=== PATIENT | female | born 1965 | race Caucasian/White ===

== ENCOUNTER 2016-09-11 18:17 | Emergency (ER) | payer OTHER ==
[2016-09-11 19:37] VITALS: BP 113/69
--- NOTE | 2016-09-11 20:07 | UC ---
Hip/Pelvis Pain - HPI Summary HPI Summary: fell onto right hip and buttock 3d ago, landed hard. Didn't hurt too much at first, but yesterday she awoke with severe pain over right lateral hip. Hurts to make any movement, hurts to touch the area. No redness or swelling. Hard to get up out of chair or bed, hurts to walk, even hurts to lie still. She is on NSAID for a flare of left ankle arthritis (?gout). Left ankle is feeling better. 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 - Hx Last Menstrual Period: 08/21/16 ?: No Onset/Duration: Gradual Onset, Lasting Days - 2 Timing: Constant Severity Initially: Mild Severity Currently: Moderate Location: Discrete At: - right hip Character Of Pain: Sharp, Aching, Stiffness Aggravating Factor(s): Movement, Weight Bearing Alleviating Factor(s): Nothing Associated Signs And Symptoms: Positive: Negative - Risk Factors Septic Arthritis Risk Factor: Negative - Allergies/Home Medications Allergies/Adverse Reactions: Allergies Allergy/AdvReac Type Severity Reaction Status Date / Time No Known Allergies Allergy Verified 09/11/16 19:37 Home Medications: Home Medications Calcium Ascorbate [Vitamin C] 500 mg PO DAILY 09/11/16 [History Confirmed ] Indomethacin CAP* [Indocin CAP*] 50 mg PO BID PRN 09/11/16 [History Confirmed ] Lisinopril TAB* [Prinivil TAB*] 20 mg PO DAILY 09/11/16 [History Confirmed 09/11] Multivitamins/Minerals TAB* [Thera M Plus TAB*] 1 tab PO DAILY 09/11/16 [ History Confirmed 09/11/16] amLODIPine TAB* [Norvasc TAB*] 5 mg PO DAILY 09/11/16 [History Confirmed ] PMH/Surg Hx/FS Hx/Imm Hx Endocrine History Of: Denies: Diabetes, Thyroid Disease Cardiovascular History Of: 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 Denies: Hypertension Respiratory History Of: Denies: COPD, Asthma - Surgical History Surgical History: Yes Surgery Procedure, Year, and Place: left shoulder, carpal tunnel, tubal ligation , - Family History Known Family History: Positive: Hypertension - Social History Occupation: Employed Full-time Lives: With Family Alcohol Use: Daily Alcohol Amount: 3-4 Substance Use Type: None Smoking Status (MU): Heavy Every Day Tobacco Smoker Type: Cigarettes Amount Used/How Often: 1/2 pack day Review of Systems Constitutional: Negative Skin: Bruising - right knee Eyes: Negative ENT: Negative Respiratory: Negative Cardiovascular: Negative Gastrointestinal: Negative Genitourinary: Negative Motor: Negative Neurovascular: Negative Musculoskeletal: Arthralgia, Decreased ROM, Myalgia Neurological: Negative Psychological: Negative All Other Systems Reviewed And Are Negative: Yes Physical Exam Triage Information Reviewed: Yes Appearance: Well-Appearing, No Pain Distress, Well-Nourished Vital Signs: Initial Vital Signs Temp 98.6 F 09/11/16 19:22 Pulse 107 09/11/16 19:22 Resp 18 09/11/16 19:22 BP 113/69 09/11/16 19:22 Pulse Ox 96 09/11/16 19:22 Vital Signs Reviewed: Yes Eye Exam: Normal Neck exam: Normal Respiratory Exam: Normal Cardiovascular Exam: Normal Musculoskeletal Exam: Other - very tender to palpation over right hip greater trochanter. No redness, bruising, or swelling. Hurts to flex and extend at hip. Neurological Exam: Normal Psychological Exam: Normal Skin Exam: Normal Diagnostics - Laboratory Diagnostic Studies Completed/Ordered: hip xray: mild DJD Hip Injury Course/Dx - Differential Dx/Diagnosis Differential Diagnosis/HQI/PQRI: Bursitis, Fracture, Strain Provider Diagnoses: hip bursitis Discharge - Discharge Plan Condition: Stable Disposition: HOME Patient Education Materials: Hip Bursitis (ED) Referrals: Jack Fuller MD [Medical Doctor] - Sesar De La Cruz MD [Primary Care Provider] - Additional Instructions: Take your indomethacin three times a day. Put heat on the hip. Try Icy Hot or Kike Silva rubs. Don't sleep on the right hip. Keep the hip moving, but don't do heavy work until it has healed If it is still terribly painful by mid week, call Dr. Fuller. He can do a further evaluation and can advise on other treatment options.
--- NOTE | 2016-09-11 20:32 | RAD ---
Indication: RIGHT hip and lateral aspect leg pain post fall onto RIGHT hip 3 days ago. Comparison: None. Technique: Supine AP pelvis and AP and frog-leg lateral views RIGHT hip. Report: Negative for pelvic fracture or pelvic joint diastases. The RIGHT hip is normally located and without radiographic evidence for fracture. Minimal marginal osteophytosis without significant joint space narrowing. Unremarkable soft tissue contours. IMPRESSION: No radiographic evidence for RIGHT hip fracture.
== END 2016-09-11 20:56 | disposition home or self-care (01) ==
LOC: UCCORT 18:17
DX: M70.71 Other bursitis of hip, right hip (principal); Y93.9 Activity, unspecified; F17.210 Nicotine dependence, cigarettes, uncomplicated
CPT/HCPCS: 99211; G0463